=== PATIENT | male | born 1980 ===

== ENCOUNTER → 2023-04-05 | Outpatient (REF) | payer SELFPAY | END | disposition home or self-care (01) | LOC: LABSPEC 09:38 | PROVIDERS: PCP Nurse Practitioner Family; Visit Provider Nurse Practitioner Family | DX: E03.9 Hypothyroidism, unspecified (principal); B60.09 Other babesiosis; A68.1 Tick-borne relapsing fever; R06.02 Shortness of breath; M79.669 Pain in unspecified lower leg ==